=== PATIENT | female | born 1995 | race Caucasian/White ===

== ENCOUNTER 2020-01-31 21:25 | Emergency (ER) | payer OTHER ==
[~2020-01-31] VITALS: Ht 162.6 cm; Wt 54.4 kg
[2020-01-31] MEDS ORDERED: LEVO-T25 MCG PO (21:37)
[2020-01-31 21:46] LABS: URINE BILIRUBIN NEGATIVE (Negative); URINE BLOOD 3+ (Negative); URINE COLOR YELLOW; URINE GLUCOSE-RANDOM NEGATIVE (Negative); URINE KETONES NEGATIVE (Negative); URINE NITRITE-REFLEX NEGATIVE (Negative); URINE PROTEIN 1+ (Negative); URINE UROBILINOGEN 0.2 E.U./dl (0.2-1.0)
[2020-01-31 21:47] LABS: URINE CLARITY HAZY; URINE LEUKOCYTES-REFLEX 3+ (Negative)
[2020-01-31 22:20] LABS: BACTERIA-REFLEX None Seen /HPF (None Seen); CASTS None Seen /LPF (None Seen); CRYSTALS None Seen /LPF (None Seen); SQUAMOUS >10 Many /LPF (0-3); URINE RBC 3-10 Few /HPF (0-2)
[2020-01-31] MEDS ORDERED: MACROBID 100 M100 M1 PO (22:49)
[2020-01-31] MEDS ORDERED: PYRIDIUM200 MG PO (22:49)
[2020-01-31] MEDS ORDERED: ZOFRAN ODT4 MG PO (22:51)
[2020-01-31 23:02] VITALS: BP 110/72
== END 2020-01-31 23:02 | disposition home or self-care (01) ==
LOC: M.ERS 21:25
PROVIDERS: Emergency Medicine
DX: N39.0 Urinary tract infection, site not specified (principal)